=== PATIENT | male | born 1955 | race Caucasian/White ===

== ENCOUNTER 2021-07-11 15:00 | Emergency (ER) | payer OTHER, MEDICARE ==
[2021-07-11] MEDS ORDERED: ACETAMINOPHEN 500 MG TABLET (FP) PO ONE (15:06)
[2021-07-11] MEDS ORDERED: ACETAMINOPHEN 325 MG TABLET (FP) ONE (15:38)
[2021-07-11 16:08] VITALS: BP 146/83; PULSE 78; TEMP 98.6; BMI 29.0
== END 2021-07-11 16:05 | disposition home or self-care (01) ==
LOC: FER 15:00
PROC: 0HQ1XZZ Repair Face Skin, External Approach (ICD-10-PCS; principal; 2021-07-11)
DX: S01.01XA Laceration without foreign body of scalp, initial encounter (principal); W22.09XA Striking against other stationary object, initial encounter
CPT/HCPCS: 99283-25

== ENCOUNTER 2021-07-18 11:00 | Emergency (ER) | payer OTHER, MEDICARE ==
[2021-07-18 11:11] VITALS: BP 158/76; PULSE 89; TEMP 98; BMI 29.0
== END 2021-07-18 11:20 | disposition home or self-care (01) ==
LOC: SUPCPDRO 11:00 → FER 11:00
DX: Z48.00 Encounter for change or removal of nonsurgical wound dressing (principal)
CPT/HCPCS: 99281-25